=== PATIENT | female | born 1965 | race African-American/Black ===

== ENCOUNTER 2016-09-20 13:33 | Emergency (ER) | payer OTHER ==
[2016-09-20 13:42] VITALS: TEMP 97.9; BMI 26.0
[2016-09-20] MEDS ORDERED: amLODIPine BESYLATE 5 MG TABLET (FP) PO ONE (14:31)
[2016-09-20] MEDS ORDERED: KETOROLAC TROMETHAMINE 60 MG/2 ML VIAL IM ONE (14:32)
--- NOTE | 2016-09-20 14:33 | PDOC ---
History of Present Illness - General Chief Complaint: Back Pain Stated Complaint: BACK PAIN Time Seen by Provider: 09/20/16 14:01 History Source: Patient Exam Limitations: No Limitations - History of Present Illness Initial Comments: 09/20/16 15:07 Patient is a 51-year-old female with history of chronic lower back pain, hypertension. Patient reports the emergency department complaining of lower back pain states "my back is shifted" patient reports bending down to pick something up off the floor and felt something move in her lower back which she has experienced in the past. Patient states she comes to emergency department for shot which helps relieve the pain. Patient's blood pressure is elevated reports not taking her Norvasc for over a month because she ran out of her prescription. Has pain or shortness of breath, no neurosensory deficits, no bowel or bladder difficulty, no saddle anesthesia, no footdrop. Patient denies any new pain or complaint. Allergies: No known allergies Medications: See medication list Family History: Non-contributory Social History: Denies smoking, alcohol use, or IVDU Vital signs on arrival are notable for BP 156/100. Review of Systems GENERAL/CONSTITUTIONAL: No fever or chills. No weakness. No weight change. HEAD, EYES, EARS, NOSE AND THROAT: No change in vision. No ear pain or discharge. No sore throat. CARDIOVASCULAR: No chest pain or shortness of breath. RESPIRATORY: No cough, wheezing, or hemoptysis. GASTROINTESTINAL: No nausea, vomiting, diarrhea or constipation. No rectal bleeding. GENITOURINARY: No dysuria, frequency, or change in urination. MUSCULOSKELETAL: No joint or muscle swelling or pain. No neck pain, lower back pain SKIN AND BREASTS: No rash or easy bruising. NEUROLOGIC: No headache, vertigo, loss of consciousness, or loss of sensation. PSYCHIATRIC: No depression or anxiety. ENDOCRINE: No increased thirst. No abnormal weight change. HEMATOLOGIC/LYMPHATIC: No anemia, easy bleeding, or history of blood clots. ALLERGIC/IMMUNOLOGIC: No hives or skin allergy. No latex allergy. Physical Exam: GENERAL: The patient is awake, alert, and fully oriented, in no acute distress. HEAD: Normal with no signs of trauma. EYES: Pupils equal, round and reactive to light, extraocular movements intact, sclera anicteric, conjunctiva clear. ENT: Ears normal, nares patent, oropharynx clear without exudates. Moist mucous membranes. No uvula deviation NECK: Normal range of motion, supple without lymphadenopathy, JVD, or masses. LUNGS: Breath sounds equal, clear to auscultation bilaterally. No wheezes, and no crackles. HEART: Regular rate and rhythm, normal S1 and S2 without murmur, rub or gallop. ABDOMEN: Soft, nontender, normoactive bowel sounds. No guarding, no rebound. No masses. No bruising or abrasions RECTAL : Guaiac negative, normal rectal tone. MUSCULOSKELETAL: Normal range of motion, no edema. No clubbing or cyanosis. No cords, erythema, or tenderness. No CVA Tenderness with fist palpation, no direct spinal point tenderness there is left paraspinal pain.. NEUROLOGICAL: Cranial nerves II through XII grossly intact. Normal speech, normal gait. PSYCH: Normal mood, normal affect. SKIN: Warm, Dry, normal turgor, no rashes or lesions noted. Past History - Past Medical History Allergies/Adverse Reactions: Allergies Allergy/AdvReac Type Severity Reaction Status Date / Time No Known Allergies Allergy Verified 09/20/16 13:38 Home Medications: Ambulatory Orders Amlodipine Besylate [Norvasc -] 5 mg PO DAILY 04/11/15 Atorvastatin Ca [Lipitor] 40 mg PO HS 04/11/15 Cyclobenzaprine HCl [Flexeril -] 10 mg PO TID 04/11/15 Ibuprofen/Famotidine [Duexis 800-26.6 mg Tablet] 1 each PO DAILY 04/11/15 Metoprolol Succinate [Toprol Xl] 50 mg PO DAILY 04/11/15 Mirabegron [Myrbetriq] 25 mg PO DAILY 04/11/15 Quetiapine Fumarate [Seroquel -] 50 mg PO BID 04/11/15 Spironolactone 25 mg PO DAILY 04/11/15 Oxycodone HCl/Acetaminophen [Percocet 5-325 mg Tablet] 2 tab PO Q4H #24 tablet MDD 12 09/20/16 HTN: Yes Psychiatric Problems: Yes (ANXIETY. DEPRESSION.) Other medical history: CHRONIC BACK PAIN - Surgical History Abdominal Surgery: Yes (UMB.HERNIA) - Psycho/Social/Smoking Cessation Hx Anxiety: Yes Suicidal Ideation: No Smoking History: Current every day smoker Have you smoked in the past 12 months: Yes Number of Cigarettes Smoked Daily: 5 Information on smoking cessation initiated: Yes 'Breaking Loose' booklet given: 09/20/16 Hx Alcohol Use: No Drug/Substance Use Hx: No Substance Use Type: Alcohol Trauma Specific PMHX - Complaint Specific PMHX Arthritis: No Back Injury: No Neck Injury: No Hx Sacro Iliac Joint Dysfunction: No *Physical Exam - Vital Signs Last Vital Signs Temp Pulse Resp BP Pulse Ox 97.9 F 61 18 156/100 100 09/20/16 13:38 09/20/16 13:38 09/20/16 13:38 09/20/16 13:38 09/20/16 13:38 Medical Decision Making - Medical Decision Making 09/20/16 15:27 A/P: Patient here for exacerbation of chronic lower back pain, also with elevated BP but denies any chest pain or shortness of breath asymptomatic. Spoke to patient's primary care doctor, explained to him patient has run out of her Norvasc medication, he will call in prescription for her we'll give her 5 mg by mouth here today. As an appointment to follow-up with him on Monday at 12 PM. Plan for back pain, Toradol 60 mg IM spoke to in regards to elevated BP and giving Toradol, it will be a one-time dose Dr. Marie states one dose of Toradol along with Valium should help with her back pain, DC patient home on Percocet as needed for pain. We'll monitor BP 09/20/16 16:32 Patient's blood pressure is 144/93, will DC patient home with Norvasc and pain control. Follow-up with PMD on Monday at 12 PM. I discussed the physical exam findings, ancillary test results and final diagnoses with the patient. I answered all of the patient's questions. The patient was satisfied with the care received and felt comfortable with the discharge plan and treatment plan. The patient will follow-up and will return to the Emergency Department with any new, persistent or worsening symptoms. *DC/Admit/Observation/Transfer Diagnosis at time of Disposition: Back pain Qualifiers: Back pain location: low back pain Chronicity: chronic Back pain laterality: bilateral Sciatica presence: without sciatica Qualified Code(s): M54.5 - Low back pain; G89.29 - Other chronic pain Hypertension Qualifiers: Hypertension type: essential hypertension Qualified Code(s): I10 - Essential ( primary) hypertension - Discharge Dispostion Disposition: HOME Condition at time of disposition: Good Admit: No - Prescriptions Prescriptions: Oxycodone HCl/Acetaminophen [Percocet 5-325 mg Tablet] 2 tab PO Q4H #24 tablet MDD 12 - Referrals Referrals: STAFF,NOT ON [Primary Care Provider] - (You have an appointment at 12 PM on Monday with your primary care doctor for follow-up.) - Patient Instructions Printed Discharge Instructions: Low Back Pain Additional Instructions: 1. Please return to the emergency department with any numbness, tingling, weakness, numbness or tingling to groin or legs, or loss of bowel or bladder function. 2. Use pain medication as ordered. 3. Please is to followup in the office of your primary care doctor on Monday 4. Ice or heat 5. Refrain from lifting anything above 10 pounds, until pain resolved. Domingo was called into her pharmacy.
[2016-09-20] MEDS ORDERED: diazePAM 5 MG TABLET PO ONE (14:35)
[2016-09-20] MEDS ORDERED: diazePAM 5 MG TABLET ONE (14:37)
[2016-09-20] MEDS ORDERED: KETOROLAC TROMETHAMINE 60 MG/2 ML VIAL ONE (14:37)
[2016-09-20] MEDS ORDERED: amLODIPine BESYLATE 5 MG TABLET (FP) ONE (14:42)
[2016-09-20 15:34] VITALS: BP 157/99; PULSE 67
== END 2016-09-20 16:42 | disposition home or self-care (01) ==
LOC: JERFT 13:33
PROC: 3E0233Z Introduction of Anti-inflammatory into Muscle, Percutaneous Approach (ICD-10-PCS; principal; 2016-09-20)
DX: M54.5 Low back pain (principal); G89.29 Other chronic pain; I10 Essential (primary) hypertension; F41.9 Anxiety disorder, unspecified; F32.9 Major depressive disorder, single episode, unspecified; F17.210 Nicotine dependence, cigarettes, uncomplicated
CPT/HCPCS: 99281-25

== ENCOUNTER 2018-10-30 16:15 | Emergency (ER) | payer OTHER ==
[2018-10-30 16:22] VITALS: BP 135/103; PULSE 78; TEMP 98.1; BMI 25.4
[2018-10-30] MEDS ORDERED: KETOROLAC TROMETHAMINE 60 MG/2 ML VIAL IM ONE (16:37)
[2018-10-30] MEDS ORDERED: CYCLOBENZAPRINE HCL 10 MG TABLET (FP) PO ONE (16:47)
[2018-10-30] MEDS ORDERED: LIDOCAINE 5% TOPICAL PATCH TP ONE (16:47)
[2018-10-30] MEDS ORDERED: LIDOCAINE 5% TOPICAL PATCH ONE (16:56)
[2018-10-30] MEDS ORDERED: CYCLOBENZAPRINE HCL 10 MG TABLET (FP) ONE (16:59)
[2018-10-30] MEDS ORDERED: KETOROLAC TROMETHAMINE 60 MG/2 ML VIAL ONE (16:59)
--- NOTE | 2018-10-30 17:04 | PDOC ---
History of Present Illness - General Chief Complaint: Back Pain Stated Complaint: BACK PAIN Time Seen by Provider: 10/30/18 16:36 History Source: Patient - History of Present Illness Occurred: reports: other Pain Location: reports: back Past History - Past Medical History Allergies/Adverse Reactions: Allergies Allergy/AdvReac Type Severity Reaction Status Date / Time lisinopril AdvReac Verified 10/30/18 16:22 Home Medications: Ambulatory Orders Amlodipine Besylate [Norvasc -] 5 mg PO DAILY 04/11/15 Atorvastatin Ca [Lipitor] 40 mg PO HS 04/11/15 Cyclobenzaprine HCl [Flexeril -] 10 mg PO TID 04/11/15 Ibuprofen/Famotidine [Duexis 800-26.6 mg Tablet] 1 each PO DAILY 04/11/15 Metoprolol Succinate [Toprol Xl] 50 mg PO DAILY 04/11/15 Mirabegron [Myrbetriq] 25 mg PO DAILY 04/11/15 Quetiapine Fumarate [Seroquel -] 50 mg PO BID 04/11/15 Spironolactone 25 mg PO DAILY 04/11/15 Oxycodone HCl/Acetaminophen [Percocet 5-325 mg Tablet] 2 tab PO Q4H #24 tablet MDD 12 09/20/16 Cyclobenzaprine HCl [Flexeril 10 mg] 10 mg PO HS #12 tablet 10/30/18 Lidocaine 5% Patch [Lidoderm Patch -] 1 patch TP DAILY #7 patch 10/30/18 COPD: No HTN: Yes Psychiatric Problems: Yes (ANXIETY. DEPRESSION.) Other medical history: chronic back pain bulging and herniated discs - Surgical History Abdominal Surgery: Yes (UMB.HERNIA) - Suicide/Smoking/Psychosocial Hx Smoking History: Current every day smoker Have you smoked in the past 12 months: Yes Number of Cigarettes Smoked Daily: 5 Information on smoking cessation initiated: No 'Breaking Loose' booklet given: 09/20/16 Hx Alcohol Use: No Drug/Substance Use Hx: No Substance Use Type: Alcohol Trauma Specific PMHX - Complaint Specific PMHX Arthritis: No Back Injury: No Neck Injury: No Hx Sacro Iliac Joint Dysfunction: No Review of Systems - Review of Systems Constitutional: No: Chills, Fever ABD/GI: No: Abdominal cramping Musculoskeletal: Yes: Back Pain Neurological: No: Numbness, Tingling, Weakness *Physical Exam - Vital Signs Last Vital Signs Temp Pulse Resp BP Pulse Ox 98.1 F 78 18 135/103 H 97 10/30/18 16:18 10/30/18 16:18 10/30/18 16:18 10/30/18 16:18 10/30/18 16:18 - Physical Exam General Appearance: Yes: Appropriately Dressed, Moderate Distress HEENT: positive: Normal Voice Neck: positive: Supple Respiratory/Chest: negative: Respiratory Distress Gastrointestinal/Abdominal: positive: Soft. negative: Normal Bowel Sounds, Tender, Pulsatile Mass, Distended, Guarding, Rebound Musculoskeletal: positive: Normal Inspection. negative: CVA Tenderness, Vertebral Tenderness Extremity: positive: Normal Inspection Integumentary: positive: Dry, Warm Neurologic: positive: Fully Oriented, Alert, Normal Mood/Affect, Motor Strength 5/5 Medical Decision Making - Medical Decision Making 10/30/18 17:08 53-year-old female, endorses history of chronic back pain with multiple herniated disc to LS-spine on remote MRI, follows up with both ortho and pain management and currently on narcotics at home for pain control, here with worsening pain that feels like "spasm" per patient. Requesting muscle relaxant and Lidoderm patch here as this has helped her in the past. No new neuro symptoms, lower extremity weakness, saddle anesthesia or bladder or bowel incontinence. see exam Acute on chronic LBP No red flags at this time -pain control>reassess in ED 10/30/18 17:50 Pain imported per pt. BP still elevated, asx from BP standpoint, Did not take meds today. To resume at home. To f/u with ortho/pain doc as usual for chronic back pain *DC/Admit/Observation/Transfer Diagnosis at time of Disposition: Chronic low back pain Qualifiers: Back pain laterality: left Sciatica presence: unspecified whether sciatica present Qualified Code(s): M54.5 - Low back pain - Discharge Dispostion Disposition: HOME Condition at time of disposition: Improved - Prescriptions Prescriptions: Cyclobenzaprine HCl [Flexeril 10 mg] 10 mg PO HS #12 tablet Lidocaine 5% Patch [Lidoderm Patch -] 1 patch TP DAILY #7 patch - Referrals Referrals: Guille Bunch [Primary Care Provider] - - Patient Instructions Printed Discharge Instructions: Low Back Pain Additional Instructions: Take medications as prescribed and follow-up with your doctors as usual - Post Discharge Activity
[2018-10-30] MEDS ORDERED: LIDOCAINE PATCH REMOVAL MC SCH (22:00)
== END 2018-10-30 17:57 | disposition home or self-care (01) ==
LOC: JERFT 16:15
DX: M54.5 Low back pain (principal); G89.29 Other chronic pain; F41.8 Other specified anxiety disorders; F32.9 Major depressive disorder, single episode, unspecified; Z88.8 Allergy status to other drugs, medicaments and biological substances; Z87.39 Personal history of other diseases of the musculoskeletal system and connective tissue
CPT/HCPCS: 99282-25

== ENCOUNTER 2019-02-22 19:26 | Emergency (ER) | payer OTHER ==
--- NOTE | 2019-02-22 19:31 | PDOC ---
Rapid Medical Evaluation Chief Complaint: Pain Time Seen by Provider: 02/22/19 19:28 Medical Evaluation: Allergies Allergy/AdvReac Type Severity Reaction Status Date / Time lisinopril AdvReac Verified 10/30/18 16:22 02/22/19 19:29 I have performed a brief in-person evaluation of this patient. The patient presents with a chief complaint of:back pain. H/o chronic lower back pain w/ known herniated discs to LS spine on remote MRI. F/u with spine and pain management Pertinent physical exam findings:bennett uncomfortable, stable I have ordered the following:nothing The patient will proceed to the ED for further evaluation 02/22/19 19:33 Discharge Disposition - Diagnosis Back pain Qualifiers: Back pain location: low back pain Chronicity: chronic Back pain laterality: unspecified Sciatica presence: without sciatica Qualified Code(s): M54.5 - Low back pain; G89.29 - Other chronic pain - Referrals - Patient Instructions - Post Discharge Activity
[2019-02-22 19:33] VITALS: BP 130/88; PULSE 82; TEMP 98.5; BMI 25.0
[2019-02-22] MEDS ORDERED: ALBUTEROL SO4 2.5/IPRATROPIUM 0.5 INH SOL 3 ML VIAL.NEB. NEB ONE (19:43)
[2019-02-22] MEDS ORDERED: KETOROLAC TROMETHAMINE 30 MG/1 ML VIAL IM ONE (19:57)
[2019-02-22] MEDS ORDERED: KETOROLAC TROMETHAMINE 30 MG/1 ML VIAL ONE (19:58)
--- NOTE | 2019-02-22 20:03 | PDOC ---
History of Present Illness - General Chief Complaint: Pain Stated Complaint: BACK PAIN Time Seen by Provider: 02/22/19 19:28 History Source: Patient Exam Limitations: No Limitations - History of Present Illness Initial Comments: 02/22/19 20:06 CHIEF COMPLAINT: Acute on chronic lower back pain HISTORY OF PRESENT ILLNESS: 54-year-old woman with chronic lower back pain from accident at work presents to the emergency department with acute exacerbation of her lower back pain. She reports she bent over to pet her dog and felt a sharp pinch in her lower back which worsens with flexion and extension of the lumbar spine. She reports her pain is 9/10 at this time. Patient reports the pain radiates down bilateral lower extremities but denies any numbness or tingling. Patient denies incontinence of bladder or bowel, urinary retention, saddle anesthesia or foot drop. She denies history of IV drug use or cancer. REVIEW OF SYSTEMS: GENERAL: Afebrile, denies any weakness RESPIRATORY: No cough, wheezing, or hemoptysis. CARDIAC: No chest pain or shortness of breath MUSCULOSKELETAL: Pain to generalized lower back. No point tenderness. SKIN : No erythema, no bruising, no deformity. GI/: Denies any abdominal pain, no urinary difficulty, incontinence or urinary retention. RECTAL: Denies any difficulty this A.m. NEUROLOGICAL: Denies any numbness or tingling. No neurosensory deficits. PHYSICAL EXAM: GENERAL: The patient is awake, alert, and fully oriented, in no acute distress. RESPIRATORY: Lungs clear bilaterally, no rhonchi wheezes or crackles CARDIAC: S1-S2 audible, no murmur rub or gallop MUSCULOSKELETAL: Pain to generalized lower back, nonradiating, no tingling or sensory deficit. Less than 2 second cap refill, +2 pedal pulses. No spinal point tenderness. Normal reflexive and no deficits to sensation or strength. Able to perform straight leg raises without difficulty. GI/: Abdomen soft, nontender, nondistended. No rebound tenderness. No masses palpable. RECTAL: Deferred patient with no neurological findings SKIN: Warm, Dry, normal turgor, no erythema, no edema no bruising. Past History - Past Medical History Allergies/Adverse Reactions: Allergies Allergy/AdvReac Type Severity Reaction Status Date / Time lisinopril AdvReac Verified 02/22/19 19:32 Home Medications: Ambulatory Orders Amlodipine Besylate [Norvasc -] 5 mg PO DAILY 04/11/15 Atorvastatin Ca [Lipitor] 40 mg PO HS 04/11/15 Cyclobenzaprine HCl [Flexeril -] 10 mg PO TID 04/11/15 Ibuprofen/Famotidine [Duexis 800-26.6 mg Tablet] 1 each PO DAILY 04/11/15 Metoprolol Succinate [Toprol Xl] 50 mg PO DAILY 04/11/15 Mirabegron [Myrbetriq] 25 mg PO DAILY 04/11/15 Quetiapine Fumarate [Seroquel -] 50 mg PO BID 04/11/15 Spironolactone 25 mg PO DAILY 04/11/15 Oxycodone HCl/Acetaminophen [Percocet 5-325 mg Tablet] 2 tab PO Q4H #24 tablet MDD 12 09/20/16 Lidocaine 5% Patch [Lidoderm Patch -] 1 patch TP DAILY #7 patch 10/30/18 Lidocaine 5% Patch [Lidoderm -] 1 patch TP DAILY #7 patch 02/22/19 Methocarbamol [Robaxin -] 1,000 mg PO TID #42 tablet 02/22/19 COPD: No HTN: Yes Psychiatric Problems: Yes (ANXIETY. DEPRESSION.) Other medical history: chronic lower back pain - Surgical History Abdominal Surgery: Yes (UMB.HERNIA) - Psycho Social/Smoking Cessation Hx Smoking History: Never smoked Have you smoked in the past 12 months: Yes Number of Cigarettes Smoked Daily: 5 'Breaking Loose' booklet given: 09/20/16 Hx Alcohol Use: No Drug/Substance Use Hx: No Substance Use Type: Alcohol Trauma Specific PMHX - Complaint Specific PMHX Arthritis: No Back Injury: No Neck Injury: No Hx Sacro Iliac Joint Dysfunction: No *Physical Exam - Vital Signs Last Vital Signs Temp Pulse Resp BP Pulse Ox 98.5 F 82 18 130/88 96 02/22/19 19:27 02/22/19 19:27 02/22/19 19:27 02/22/19 19:27 02/22/19 19:27 Medical Decision Making - Medical Decision Making 02/22/19 20:04 A/P: 54-year-old woman with acute on chronic lower back pain Palpable muscle spasms present bilateral paraspinous muscles. 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 Toradol 30 mg IM now Discharge home with prescription for Robaxin and lidocaine patches. I discussed the physical exam findings, ancillary test results and final diagnoses with the patient. I answered all of the patient's questions. The patient was satisfied with the care received and felt comfortable with the discharge plan and treatment plan. The patient will call their primary care physician within 24 hours to arrange follow-up and will return to the Emergency Department with any new, persistent or worsening symptoms. Discharge - Discharge Information Problems reviewed: Yes Clinical Impression/Diagnosis: Back pain Qualifiers: Back pain location: low back pain Chronicity: chronic Back pain laterality: unspecified Sciatica presence: without sciatica Qualified Code(s): M54.5 - Low back pain Disposition: HOME - Admission No - Additional Discharge Information Prescriptions: Lidocaine 5% Patch [Lidoderm -] 1 patch TP DAILY #7 patch Methocarbamol [Robaxin -] 1,000 mg PO TID #42 tablet - Follow up/Referral Referrals: Guille Bunch [Primary Care Provider] - - Patient Discharge Instructions Additional Instructions: Rest, no heavy lifting or exercise until pain is resolved Hot soaks to neck and low back as often as possible/hot showers or Jacuzzis No massage or therapy until spasm is gone Continue previously prescribed medications. Robaxin 1000mg every 8 hours as needed for spasm If not significant improvement within 24 hours with medication and rest regime, followup with private physician for change in medications and /or therapy. - Post Discharge Activity
== END 2019-02-22 20:10 | disposition home or self-care (01) ==
LOC: JERFT 19:26
PROC: 3E0233Z Introduction of Anti-inflammatory into Muscle, Percutaneous Approach (ICD-10-PCS; principal; 2019-02-22)
DX: M54.5 Low back pain (principal); G89.29 Other chronic pain; X58.XXXS Exposure to other specified factors, sequela; I10 Essential (primary) hypertension; Z88.8 Allergy status to other drugs, medicaments and biological substances; F41.8 Other specified anxiety disorders; F32.9 Major depressive disorder, single episode, unspecified
CPT/HCPCS: 99282-25

== ENCOUNTER 2019-09-14 10:53 | Emergency (ER) | payer OTHER, BC ==
--- NOTE | 2019-09-14 11:05 | PDOC ---
History of Present Illness - General Chief Complaint: Headache Stated Complaint: HEADACHE/HIGH BLOOD PRESSURE Time Seen by Provider: 09/14/19 11:00 History Source: Patient Exam Limitations: No Limitations - History of Present Illness Initial Comments: 09/14/19 11:05 54yF w PMHx multiple disc herniations, HTN, HLD, arthritis, migraine, insomnia presenting w HTN and headache. Progressive worsening band like moderate headache since 5am this morning. Also has chronic elevated BP, recently changed meds from 5 norvasc to 25 metoprolol 10d ago w PCP d/t concerns about potential mood swings and memory loss side effects of norvasc. Not compliant w meds. 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 Similar to previous migraines. Denies fever, cough, n/v, visual changes, chest/ABD pain, SOB, urinary/bowel mvmt changes. Past History - Medical History Allergies/Adverse Reactions: Allergies Allergy/AdvReac Type Severity Reaction Status Date / Time lisinopril AdvReac Verified 09/14/19 10:57 Home Medications: Ambulatory Orders Atorvastatin Ca [Lipitor] 40 mg PO HS 04/11/15 Cyclobenzaprine HCl [Flexeril -] 10 mg PO TID 04/11/15 Ibuprofen/Famotidine [Duexis 800-26.6 mg Tablet] 1 each PO DAILY 04/11/15 Metoprolol Succinate [Toprol Xl] 50 mg PO DAILY 04/11/15 Mirabegron [Myrbetriq] 25 mg PO DAILY 04/11/15 Quetiapine Fumarate [Seroquel -] 50 mg PO BID 04/11/15 Spironolactone 25 mg PO DAILY 04/11/15 Oxycodone HCl/Acetaminophen [Percocet 5-325 mg Tablet] 2 tab PO Q4H #24 tablet MDD 12 09/20/16 Lidocaine 5% Patch [Lidoderm Patch -] 1 patch TP DAILY #7 patch 10/30/18 Lidocaine 5% Patch [Lidoderm -] 1 patch TP DAILY #7 patch 02/22/19 Methocarbamol [Robaxin -] 1,000 mg PO TID #42 tablet 02/22/19 Hydrochlorothiazide [Hctz -] 25 mg PO DAILY 09/14/19 Metoprolol Succinate 25 mg PO DAILY 09/14/19 COPD: No HTN: Yes Psychiatric Problems: Yes (ANXIETY. DEPRESSION.) - Surgical History Abdominal Surgery: Yes (UMB.HERNIA) - Immunization History Immunization Up to Date: No - Psycho-Social/Smoking History Smoking History: Never smoked Have you smoked in the past 12 months: Yes Number of Cigarettes Smoked Daily: 5 'Breaking Loose' booklet given: 09/20/16 Review of Systems - Review of Systems Constitutional: No: Chills, Fever HEENTM: No: Eye Pain, Recent change in vision, Throat Pain Respiratory: No: Cough, Shortness of Breath Cardiac (ROS): No: Chest Pain, Palpitations, Syncope ABD/GI: No: Abdominal Distended, Constipated, Diarrhea, Nausea, Vomiting : No: Burning, Dysuria Musculoskeletal: No: Back Pain, Joint Pain Integumentary: No: Bruising, Flushing Neurological: No: Headache, Seizure Psychiatric: No: Anxiety, Depression Endocrine: No: Intolerance to Cold, Intolerance to Heat Hematologic/Lymphatic: No: Anemia, Blood Clots *Physical Exam - Physical Exam General Appearance: Yes: Nourished, Appropriately Dressed, Mild Distress HEENT: positive: EOMI, CATIA, Normal Voice, Hearing Grossly Normal. negative: Scleral Icterus (R), Scleral Icterus (L) Respiratory/Chest: positive: Lungs Clear, Normal Breath Sounds. negative: Chest Tender, Respiratory Distress Cardiovascular: positive: Regular Rhythm, Regular Rate, S1, S2, Murmur. negative: Edema Gastrointestinal/Abdominal: positive: Normal Bowel Sounds, Flat, Soft. negative: Tender, Organomegaly Integumentary: positive: Normal Color, Warm Neurologic: positive: card grader II-XII NML intact, Fully Oriented, Alert, Normal Mood/Affect, Normal Response, Motor Strength 5/5, Responsive. negative: Facial Droop, Numbness, Sensory Deficit, Confused, Disoriented ED Treatment Course - LABORATORY CBC & Chemistry Diagram: 09/14/19 12:25 09/14/19 12:25 Medical Decision Making - Medical Decision Making 09/14/19 12:[address] - small cystic area within R basal ganglia measuring 1.3cm , no acute bleed/infarct/mass EKG - sinus rhythm w 1st deg AV block, HR 61, Qtc 434, no ST changes --- 54yF w PMHx multiple disc herniations, HTN, HLD, arthritis, insomnia, migraines presenting w HTN and headache. HTN d/t med noncompliance Likely migraine No acute bleed/infarct on CT, no neuro deficits. Has 1.3cm cystic area on CT known before and followed w neuro Given tylenol, reglan, benadryl, lopressor, home metoprolol, repeat BP 177/97 DC home w cards and PCP f/u Discharge - Discharge Information Problems reviewed: Yes Clinical Impression/Diagnosis: Hypertension Qualifiers: Hypertension type: essential hypertension Qualified Code(s): I10 - Essential (primary) hypertension Migraine Qualifiers: Migraine type: without aura Status migrainosus presence: without status migrainosus Intractability: not intractable Qualified Code(s): G43.009 - Migraine without aura, not intractable, without status migrainosus Condition: Improved - Follow up/Referral Referrals: Guille Bunch [Primary Care Provider] - Rick Valdez MD [Staff Physician] - - Patient Discharge Instructions Patient Printed Discharge Instructions: DI for High Blood Pressure Additional Instructions: Your workup did not show anything concerning Take your hypertension medication as prescribed Take tylenol or ibuprofen if you have pain Drink lots of water Please follow up with your primary care doctor and the referred business services representative Dr Valdez to control your blood pressure - Post Discharge Activity
[2019-09-14 11:17] VITALS: TEMP 98; BMI 23.7
[2019-09-14] MEDS ORDERED: METOCLOPRAMIDE HCL INJECTION 10 MG/2 ML VIAL IVPUSH ONE (11:33)
[2019-09-14] MEDS ORDERED: ACETAMINOPHEN 1000 MG/100 ML VIAL (NON FORMULARY) IVPB ONE (11:33)
[2019-09-14] MEDS ORDERED: SODIUM CHLORIDE 1,000 ML IV STA (11:33)
[2019-09-14] MEDS ORDERED: METOCLOPRAMIDE HCL INJECTION 10 MG/2 ML VIAL ONE (11:40)
[2019-09-14] MEDS ORDERED: ACETAMINOPHEN INJECTION 100 ML IVPB ONE (11:40)
--- NOTE | 2019-09-14 11:40 | PDOC ---
Documentation entered by Yazan Arias SCRIBE, acting as scribe for Idalia Phillips MD. Idalia Phillips MD: This documentation has been prepared by the Hugo byrnes Aaron, SCRIBE, under my direction and personally reviewed by me in its entirety. I confirm that the documentation accurately reflects all work, treatment, procedures, and medical decision making performed by me. Attending Attestation - Resident Resident Name: Rohith Almazan - ED Attending Attestation I have performed the following: I have examined & evaluated the patient, The case was reviewed & discussed with the resident, I agree w/resident's findings & plan, Exceptions are as noted - HPI HPI: 09/14/19 11:34 54YOF with h/o HTN, HLD, multiple lumbar disc herniations, arthritis, and insomnia, who p/w band-like headache and hypertension since awakening this morning. She does not normally have headaches, so this headache is somewhat outside her baseline, but she denies sudden onset, progressive nature, worst GRECO of her life, or any associated f/c/n/v/d/c, n/t/w focally, or other symptoms. Her BP medications were adjusted about 10 days ago, and currently she is taking metoprolol (25mg qAM and 50mg qNight) and hydralazine. - Physicial Exam PE: 09/14/19 11:36 GENERAL: well-appearing, A/Ox4, no distress, answers questions appropriately HEENT: PERRLA, EOMI, moist mucous membranes NECK/BACK: no midline ttp, no spinal step-off or deformity, no hematoma, full ROM, neck supple CARDIOVASCULAR: regular rate/rhythm, no MGR, strong peripheral pulses, capillary refill <2 seconds, extremities wwp, no edema LUNGS/RESPIRATORY: no respiratory distress, CTAB GI/ABDOMEN: symmetric [id number], normoactive BS, soft, no ttp, no midline pulsatile masses : no CVA tenderness MSK/EXTREMITIES: no muscle atrophy, no acute deformity SKIN: warm and dry, no pallor, no jaundice, no rash, no pathologic-appearing bruising, no skin breakdown, no cuts, no lesions NEUROLOGICAL: GCS 15, CN II-XII grossly intact, 5/5 strength proximally and distally, no facial droop, normal gait, no pathologic nystagmus, normal [id number], normal [id number], negative Romberg, no pronator drift, no ataxia - Medical Decision Making 09/14/19 11:45 54YOF p/w band-like headache outside her normal baseline with associated hypertension all since this morning. Initial Vital Signs Temp Pulse Resp BP Pulse Ox 98 F 67 16 189/109 H 99 09/14/19 11:03 09/14/19 11:03 09/14/19 11:03 09/14/19 11:03 09/14/19 11:03 Most likely migraine or tension headache. Likely this is worsening her blood pressure d/t pain and stress of being in the ED. Very unlikely hypertensive emergency, ICH, ruptured or acutely expanded brain aneurysm, or other more serious etiology. Provider Orders Category Date Time Status HEAD CT WITHOUT CONTRAST [CT] Stat CT Scan 09/14/19 11:32 Completed EKG [ELECTROCARDIOGRAM] [CARD] Stat Cardiology 09/14/19 11:31 Completed Cardiac Monitoring Continuous Care 09/14/19 11:32 Active EKG needed NOW Care 09/14/19 11:32 Completed CBC WITH DIFFERENTIAL Stat Lab 09/14/19 12:25 Completed CMP [COMP METABOLIC PANEL] Stat Lab 09/14/19 12:25 Completed Mg [MAGNESIUM] Stat Lab 09/14/19 12:25 Completed PT [PT/INR (PROTHROMBIN TIME)] Stat Lab 09/14/19 12:25 Completed PTT [ACTIVATED PTT] Stat Lab 09/14/19 12:25 Completed SERUM TEST Stat Lab 09/14/19 12:25 Completed UA ([facility]) ONLY Stat Lab 09/14/19 12:25 Completed Acetaminophen Injection [Ofirmev Injection -] Medication 09/14/19 11:33 Discontinued 1,000 mg IVPB ONCE ONE Acetaminophen Injection [Ofirmev Injection -] 100 ml Medication 09/14/19 11:40 Discontinued IVPB UD Diphenhydramine [Benadryl Injection -] Medication 09/14/19 11:33 Discontinued 25 mg IVPUSH ONCE ONE Diphenhydramine [Benadryl Injection -] Medication 09/14/19 11:41 Discontinued 50 mg .ROUTE .STK-MED ONE Metoclopramide HCl Injection [Reglan Injection -] Medication 09/14/19 11:40 Discontinued 10 mg .ROUTE .STK-MED ONE Metoclopramide HCl Injection [Reglan Injection -] Medication 09/14/19 11:33 Discontinued 10 mg IVPUSH ONCE ONE Metoprolol Tartrate Injection [Lopressor Injection -] Medication 09/14/19 14:36 Discontinued 5 mg .ROUTE .STK-MED ONE Metoprolol Tartrate Injection [Lopressor Injection -] Medication 09/14/19 14: 29 Discontinued 5 mg IVPUSH ONCE ONE Metoprolol Tartrate [Lopressor -] Medication 09/14/19 14:36 Discontinued 25 mg .ROUTE .STK-MED ONE Metoprolol Tartrate [Lopressor -] Medication 09/14/19 14:29 Discontinued 25 mg PO ONCE ONE Sodium Chloride [Normal Saline -] 1,000 ml Medication 09/14/19 11:33 Discontinued IV ASDIR Urine Culture [URINE CULTURE] Stat Micro 09/14/19 12:25 Completed IV Insert NOW Phy Order 09/14/19 11:32 Active Medications Discontinued Medications Generic Name Dose Route Start Last Admin Trade Name Freq PRN Reason Stop Dose Admin Acetaminophen 1,000 mg 09/14/19 11:33 09/14/19 11:49 Ofirmev Injection - IVPB 09/14/19 11:34 1,000 mg ONCE ONE Administration Diphenhydramine HCl 25 mg 09/14/19 11:33 09/14/19 11:49 Benadryl Injection - IVPUSH 09/14/19 11:34 25 mg ONCE ONE Administration Diphenhydramine HCl Confirm 09/14/19 11:41 Benadryl Injection - Administered 09/14/19 11:42 Dose 50 mg .ROUTE .STK-MED ONE Sodium Chloride 1,000 mls @ 1,000 mls/hr 09/14/19 11:33 09/14/19 11:49 Normal Saline - IV 09/14/19 12:32 1,000 mls/hr ASDIR STA Administration Acetaminophen Confirm 09/14/19 11:40 Ofirmev Injection - Administered 09/14/19 11:41 Dose 100 mls @ ud IVPB .STK-MED ONE Metoclopramide HCl 10 mg 09/14/19 11:33 09/14/19 11:50 Reglan Injection - IVPUSH 09/14/19 11:34 10 mg ONCE ONE Administration Metoclopramide HCl Confirm 09/14/19 11:40 Reglan Injection - Administered 09/14/19 11:41 Dose 10 mg .ROUTE .STK-MED ONE Metoprolol Tartrate 25 mg 09/14/19 14:29 09/14/19 14:40 Lopressor - PO 09/14/19 14:30 25 mg ONCE ONE Administration Metoprolol Tartrate 5 mg 09/14/19 14:29 09/14/19 14:40 Lopressor Injection - IVPUSH 09/14/19 14:30 5 mg ONCE ONE Administration Metoprolol Tartrate Confirm 09/14/19 14:36 Lopressor - Administered 09/14/19 14:37 Dose 25 mg .ROUTE .STK-MED ONE Metoprolol Tartrate Confirm 09/14/19 14:36 Lopressor Injection - Administered 09/14/19 14:37 Dose 5 mg .ROUTE .STK-MED ONE Microbiology Tests 09/14/19 12:25 Urine Culture - Final Urine - Urine Clean Catch NO GROWTH OBTAINED Lab Results WBC 7.0 K/mm3 (4.0-10.0) 09/14/19 12:25 RBC 4.87 M/mm3 (3.60-5.2) 09/14/19 12:25 Hgb 12.5 GM/dL (10.7-15.3) 09/14/19 12:25 Hct 39.6 % (32.4-45.2) 09/14/19 12:25 MCV 81.3 fl (80-96) 09/14/19 12:25 MCH 25.7 pg (25.7-33.7) 09/14/19 12:25 MCHC 31.7 g/dl (32.0-36.0) L 09/14/19 12:25 RDW 14.6 % (11.6-15.6) 09/14/19 12:25 Plt Count 154 K/MM3 (134-434) 09/14/19 12:25 MPV 9.0 fl (7.5-11.1) 09/14/19 12:25 Absolute Neuts (auto) 5.3 K/mm3 (1.5-8.0) 09/14/19 12:25 Neutrophils % 75.1 % (42.8-82.8) 09/14/19 12:25 Lymphocytes % 17.2 % (8-40) 09/14/19 12:25 Monocytes % 6.8 % (3.8-10.2) 09/14/19 12:25 Eosinophils % 0.5 % (0-4.5) 09/14/19 12:25 Basophils % 0.4 % (0-2.0) 09/14/19 12:25 Nucleated RBC % 0 % (0-0) 09/14/19 12:25 PT with INR 11.20 SEC (9.7-13.0) 09/14/19 12:25 INR 0.95 (0.83-1.09) 09/14/19 12:25 PTT (Actin FS) 30.3 SECONDS (25.2-36.5) 09/14/19 12:25 Sodium 141 mmol/L (136-145) 09/14/19 12:25 Potassium 3.7 mmol/L (3.5-5.1) 09/14/19 12:25 Chloride 105 mmol/L (98-107) 09/14/19 12:25 Carbon Dioxide 31 mmol/L (21-32) 09/14/19 12:25 Anion Gap 4 MMOL/L (8-16) L 09/14/19 12:25 BUN 14.6 mg/dL (7-18) 09/14/19 12:25 Creatinine 0.9 mg/dL (0.55-1.3) 09/14/19 12:25 Est GFR (CKD-EPI)AfAm 83.43 09/14/19 12:25 Est GFR (CKD-EPI)NonAf 71.98 09/14/19 12:25 Random Glucose 109 mg/dL (74-106) H 09/14/19 12:25 Calcium 9.7 mg/dL (8.5-10.1) 09/14/19 12:25 Magnesium 2.5 mg/dL (1.8-2.4) H 09/14/19 12:25 Total Bilirubin 0.7 mg/dL (0.2-1) 09/14/19 12:25 AST 16 U/L (15-37) 09/14/19 12:25 ALT 20 U/L (13-61) 09/14/19 12:25 Alkaline Phosphatase 58 U/L (45-117) 09/14/19 12:25 Total Protein 7.0 g/dl (6.4-8.2) 09/14/19 12:25 Albumin 4.1 g/dl (3.4-5.0) 09/14/19 12:25 Serum , Qual Negative 09/14/19 12:25 Urine Color Yellow 09/14/19 12:25 Urine Appearance Clear 09/14/19 12:25 Urine pH 6.0 (5.0-8.0) 09/14/19 12:25 Ur Specific [place] 1.017 (1.010-1.035) 09/14/19 12:25 Urine Protein Negative (NEGATIVE) 09/14/19 12:25 Urine Glucose (UA) Negative (NEGATIVE) 09/14/19 12:25 Urine Ketones Negative (NEGATIVE) 09/14/19 12:25 Urine Blood Negative (NEGATIVE) 09/14/19 12: Urine Nitrite Negative (NEGATIVE) 09/14/19 12:25 Urine Bilirubin Negative (NEGATIVE) 09/14/19 12:25 Urine Urobilinogen 1.0 mg/dL (0.2-1.0) 09/14/19 12:25 Ur Leukocyte Esterase Negative (NEGATIVE) 09/14/19 12:25 CT/HEAD CT WITHOUT CONTRAST HISTORY PROVIDED: Headache TECHNIQUE: Sequential axial images were obtained from the base of the skull to the vertex. There is no evidence of acute intracranial hemorrhage, mass lesions or infarctions. There is a small cystic area within the right basal ganglia that measures 1.3 cm. The etiology of this is uncertain. The visualized paranasal sinuses and mastoid air cells are clear. The calvarium is intact. IMPRESSION: No evidence of acute intracranial pathology. Please see above discussion. Last Vital Signs Temp Pulse Resp BP Pulse Ox 98 F 68 16 177/97 H 98 09/14/19 11:03 09/14/19 15:05 09/14/19 15:05 09/14/19 15:05 09/14/19 15:05 Likely incidental cystic area on CTH and this is discussed with the patient, likely chronic and no evidence that this is the cause of her symptoms. This Pt has gotten significant relief of symptoms while in the ED. On last reassessment, vitals are wnl, pain is reasonably controlled, and exam is benign. Workup is not concerning for emergency-level pathology at this time. This Pt is appropriate for discharge with close outpatient follow up. They are comfortable with this plan and will follow up with PCP in 1-3 days. She will take OTC pain medications following bottle label at home if necessary for any mild recurrence of symptoms. She will take her HTN medications as prescribed at home. Specific return precautions are discussed and they will come back to the ER if necessary. Heart Score/ECG Review #1 09/14/19 11:1 Sinus rhythm, rate 61, left axis deviation, 1st degree AV block, poor R wave progression, no other ST-T changes Discharge - Discharge Information Problems reviewed: Yes Clinical Impression/Diagnosis: Hypertension Qualifiers: Hypertension type: essential hypertension Qualified Code(s): I10 - Essential (primary) hypertension Migraine Qualifiers: Migraine type: without aura Status migrainosus presence: without status migrainosus Intractability: not intractable Qualified Code(s): G43.009 - Migraine without aura, not intractable, without status migrainosus Condition: Improved Disposition: HOME - Admission No - Follow up/Referral Referrals: Rick Valdez MD [Staff Physician] - Guille Bunch [Primary Care Provider] - - Patient Discharge Instructions Patient Printed Discharge Instructions: DI for High Blood Pressure Additional Instructions: Your workup did not show anything concerning Take your hypertension medication as prescribed Take tylenol or ibuprofen if you have pain Drink lots of water Please follow up with your primary care doctor and the referred water resources business segment leader Dr Valdez to control your blood pressure - Post Discharge Activity
[2019-09-14 12:40] LABS: BASO % 0.4 % (0-2.0); EOS % 0.5 % (0-4.5); HEMATOCRIT 39.6 % (32.4-45.2); HEMOGLOBIN 12.5 GM/dL (10.7-15.3); LYMPH % 17.2 % (8-40); MCH 25.7 pg (25.7-33.7); MCHC 31.7 g/dl (32.0-36.0); MEAN CELL VOLUME 81.3 fl (80-96); MONO % 6.8 % (3.8-10.2); NEUT % 75.1 % (42.8-82.8); PLATELET COUNT 154 K/MM3 (134-434); RBC 4.87 M/mm3 (3.60-5.2); RDW 14.6 % (11.6-15.6)
[2019-09-14 12:43] LABS: URINE APPEARANCE CLEAR; URINE BILIRUBIN NEGATIVE (NEGATIVE); URINE COLOR YELLOW; URINE GLUCOSE (UA) NEGATIVE (NEGATIVE); URINE KETONE NEGATIVE (NEGATIVE); URINE LEUK ESTERASE NEGATIVE (NEGATIVE); URINE NITRITE NEGATIVE (NEGATIVE); URINE PROTEIN NEGATIVE (NEGATIVE)
[2019-09-14 12:49] LABS: INR 0.95 (0.83-1.09); PROTHROMBIN TIME (PATIENT) 11.2 SEC (9.7-13.0)
[2019-09-14 12:52] LABS: ACTIVATED PTT 30.3 SECONDS (25.2-36.5)
[2019-09-14 13:06] LABS: ALBUMIN 4.1 g/dl (3.4-5.0); BILIRUBIN,TOTAL 0.7 mg/dL (0.2-1); BLOOD UREA NITROGEN 14.6 mg/dL (7-18); CALCIUM 9.7 mg/dL (8.5-10.1); CREATININE 0.9 mg/dL (0.55-1.3); MAGNESIUM 2.5 mg/dL (1.8-2.4); POTASSIUM 3.7 mmol/L (3.5-5.1)
--- NOTE | 2019-09-14 13:23 | EKG ---
Test Reason : Blood Pressure : / mmHG Vent. Rate : 061 BPM Atrial Rate : 061 BPM P-R Int : 278 ms QRS Dur : 082 ms QT Int : 432 ms P-R-T Axes : 052 -14 061 degrees QTc Int : 434 ms POOR DATA QUALITY, INTERPRETATION MAY BE ADVERSELY AFFECTED SINUS RHYTHM WITH 1ST DEGREE A-V BLOCK POSSIBLE LEFT ATRIAL ENLARGEMENT BORDERLINE ECG NO PREVIOUS ECGS AVAILABLE Confirmed by Krystal David ([id number]) on 09/14/2019 1:22:39 PM Referred By: Confirmed By:Krystal David
[2019-09-14] MEDS ORDERED: METOPROLOL TARTRATE 25 MG TABLET (FP) PO ONE (14:29)
[2019-09-14] MEDS ORDERED: METOPROLOL TARTRATE 5 MG/5 ML VIAL IVPUSH ONE (14:29)
[2019-09-14] MEDS ORDERED: METOPROLOL TARTRATE 5 MG/5 ML VIAL ONE (14:36)
[2019-09-14] MEDS ORDERED: METOPROLOL TARTRATE 25 MG TABLET (FP) ONE (14:36)
[2019-09-14 15:06] VITALS: BP 177/97; PULSE 68
== END 2019-09-14 15:51 | disposition home or self-care (01) ==
LOC: JER 10:53
PROC: 3E033NZ Introduction of Analgesics, Hypnotics, Sedatives into Peripheral Vein, Percutaneous Approach (ICD-10-PCS; principal; 2019-09-14)
PROC: 3E033GC Introduction of Other Therapeutic Substance into Peripheral Vein, Percutaneous Approach (ICD-10-PCS; 2019-09-14)
PROC: 3E0337Z Introduction of Electrolytic and Water Balance Substance into Peripheral Vein, Percutaneous Approach (ICD-10-PCS; 2019-09-14)
DX: G43.009 Migraine without aura, not intractable, without status migrainosus (principal); I10 Essential (primary) hypertension
CPT/HCPCS: 36415; 70450-TC; 80053; 81003; 83735; 84703; 85025; 85610; 85730; 87086; 93005; 93010; 99285-25; J0131

== ENCOUNTER 2022-03-29 12:24 | Emergency (ER) | payer BC, OTHER ==
[2022-03-29 12:29] VITALS: BP 144/84; PULSE 69; RESP 20; TEMP 97.7; BMI 24.9
[2022-03-29] MEDS ORDERED: KETOROLAC TROMETHAMINE 30 MG/1 ML VIAL IM ONE (12:52)
[2022-03-29] MEDS ORDERED: METHOCARBAMOL 500 MG TABLET PO ONE (12:52)
[2022-03-29] MEDS ORDERED: LIDOCAINE 5% TOPICAL PATCH TP ONE (12:53)
[2022-03-29 14:00] LABS: EPI CELLS 30 /uL (0-25.1); HYALINE CASTS 1 /uL (0-3.1); URINE APPEARANCE CLEAR; URINE BACTERIA 524 /uL (0-1359); URINE BILIRUBIN NEGATIVE (NEGATIVE); URINE COLOR YELLOW; URINE GLUCOSE (UA) NEGATIVE (NEGATIVE); URINE KETONE TRACE (NEGATIVE); URINE LEUK ESTERASE TRACE (NEGATIVE); URINE NITRITE NEGATIVE (NEGATIVE); URINE PROTEIN TRACE (NEGATIVE); URINE RBC 10 /uL (0-23.9); URINE WBC 12 /uL (0-25.8)
[2022-03-29 15:15] LABS: URINE CRYSTALS NEGATIVE /hpf
[2022-03-29] MEDS ORDERED: LIDOCAINE PATCH REMOVAL MC ONE (22:00)
== END 2022-03-29 14:32 | disposition home or self-care (01) ==
LOC: JERFT 12:24
PROC: 3E023GC Introduction of Other Therapeutic Substance into Muscle, Percutaneous Approach (ICD-10-PCS; principal; 2022-03-29)
DX: M54.50 Low back pain, unspecified (principal)
CPT/HCPCS: 81003; 87086; 99284-25

== ENCOUNTER 2023-01-28 16:23 | Emergency (ER) | payer OTHER, BC ==
[2023-01-28 16:34] VITALS: BP 137/96; PULSE 72; RESP 18; TEMP 98.7; BMI 25.4
[2023-01-28] MEDS ORDERED: KETOROLAC TROMETHAMINE 30 MG/1 ML VIAL IM ONE (18:29)
[2023-01-28] MEDS ORDERED: ACETAMINOPHEN 500 MG TABLET (FP) PO ONE (18:30)
[2023-01-28] MEDS ORDERED: KETOROLAC TROMETHAMINE 30 MG/1 ML VIAL ONE (18:31)
[2023-01-28] MEDS ORDERED: ACETAMINOPHEN 500 MG TABLET (FP) ONE (18:32)
== END 2023-01-28 19:03 | disposition home or self-care (01) ==
LOC: JER 16:23 → JERFT 16:23
PROC: 3E0233Z Introduction of Anti-inflammatory into Muscle, Percutaneous Approach (ICD-10-PCS; principal; 2023-01-28)
DX: S93.401A Sprain of unspecified ligament of right ankle, initial encounter (principal)
CPT/HCPCS: 73610-TC-RT-FY; 99284-25

== ENCOUNTER 2023-08-03 00:05 | Emergency (ER) | payer OTHER, BC ==
[2023-08-03 00:11] VITALS: BP 140/87; PULSE 63; RESP 20; TEMP 98.8; BMI 25.7
[2023-08-03] MEDS ORDERED: KETOROLAC TROMETHAMINE 30 MG/1 ML VIAL ONE (00:49)
[2023-08-03] MEDS ORDERED: METHOCARBAMOL 500 MG TABLET ONE (00:49)
[2023-08-03] MEDS: KETOROLAC TROMETHAMINE 30 MG/1 ML VIAL IM ONE (00:55)
[2023-08-03] MEDS: METHOCARBAMOL 500 MG TABLET PO ONE (00:55)
== END 2023-08-03 01:49 | disposition home or self-care (01) ==
LOC: JER 00:05
PROC: 3E0233Z Introduction of Anti-inflammatory into Muscle, Percutaneous Approach (ICD-10-PCS; principal; 2023-08-03)
DX: M54.50 Low back pain, unspecified (principal); G89.29 Other chronic pain; R20.2 Paresthesia of skin
CPT/HCPCS: 99284-25

== ENCOUNTER 2023-08-13 19:54 | Emergency (ER) | payer OTHER, BC ==
[2023-08-13 20:01] VITALS: RESP 20; TEMP 97.5; BMI 25.4
[2023-08-13] MEDS ORDERED: ACETAMINOPHEN 500 MG TABLET (FP) ONE (20:31)
[2023-08-13] MEDS ORDERED: LIDOCAINE 4% PATCH TP ONE ×2 (20:31→20:40)
[2023-08-13] MEDS ORDERED: METHOCARBAMOL 500 MG TABLET ONE (20:31)
[2023-08-13] MEDS ORDERED: KETOROLAC TROMETHAMINE 30 MG/1 ML VIAL ONE (20:31)
[2023-08-13] MEDS: METHOCARBAMOL 500 MG TABLET PO ONE (20:55)
[2023-08-13] MEDS: ACETAMINOPHEN 500 MG TABLET (FP) PO ONE (21:08)
[2023-08-13] MEDS: KETOROLAC TROMETHAMINE 30 MG/1 ML VIAL IM ONE (21:08)
[2023-08-13] MEDS: LIDOCAINE 4% PATCH TP ONE ×2 (21:09)
[2023-08-13 21:39] VITALS: BP 188/98; PULSE 78
[2023-08-13] MEDS ORDERED: LIDOCAINE PATCH REMOVAL MC SCH ×2 (22:00)
== END 2023-08-13 21:38 | disposition home or self-care (01) ==
LOC: JER 19:54
PROC: 3E0233Z Introduction of Anti-inflammatory into Muscle, Percutaneous Approach (ICD-10-PCS; principal; 2023-08-13)
DX: M54.50 Low back pain, unspecified (principal); G89.29 Other chronic pain
CPT/HCPCS: 99284-25

== ENCOUNTER 2023-08-17 13:54 | Emergency (ER) | payer BC, OTHER ==
[2023-08-17 14:08] VITALS: BP 139/87; PULSE 69; RESP 18; TEMP 98.4; BMI 25.6
[2023-08-17] MEDS ORDERED: METHOCARBAMOL 500 MG TABLET ONE ×2 (15:32→16:01)
[2023-08-17] MEDS ORDERED: KETOROLAC TROMETHAMINE 30 MG/1 ML VIAL ONE (15:32)
[2023-08-17] MEDS ORDERED: LIDOCAINE 4% PATCH TP ONE (15:32)
[2023-08-17] MEDS: METHOCARBAMOL 500 MG TABLET PO ONE ×3 (15:43→16:07)
[2023-08-17] MEDS: diazePAM 2 MG TABLET PO ONE (15:43)
[2023-08-17] MEDS: KETOROLAC TROMETHAMINE 30 MG/1 ML VIAL IM ONE (15:44)
[2023-08-17] MEDS ORDERED: LIDOCAINE 5% TOPICAL PATCH ONE (16:01)
[2023-08-17] MEDS: LIDOCAINE 5% TOPICAL PATCH TP ONE ×2 (16:06)
[2023-08-17] MEDS: oxyCODONE HCL 5 MG TABLET PO ONE (16:07)
[2023-08-17] MEDS ORDERED: LIDOCAINE PATCH REMOVAL MC SCH ×2 (22:00)
== END 2023-08-17 16:13 | disposition home or self-care (01) ==
LOC: JER 13:54
PROC: 3E0233Z Introduction of Anti-inflammatory into Muscle, Percutaneous Approach (ICD-10-PCS; principal; 2023-08-17)
DX: M54.50 Low back pain, unspecified (principal)
CPT/HCPCS: 99284-25